=== PATIENT | female | born 1970 | race Caucasian/White ===

== ENCOUNTER 2018-08-10 13:14 | Emergency (ER) | payer OTHER ==
[~2018-08-10] VITALS: Ht 165.1 cm; Wt 81.6 kg
[2018-08-10] MEDS ORDERED: Motrin,Rufen800 MG PO (15:32)
== END 2018-08-10 15:42 | disposition home or self-care (01) ==
LOC: ED 13:14
DX: S89.91XA Unspecified injury of right lower leg, initial encounter (principal); M79.89 Other specified soft tissue disorders; W19.XXXA Unspecified fall, initial encounter; Y93.89 Activity, other specified; Y92.89 Other specified places as the place of occurrence of the external cause; Y99.8 Other external cause status